=== PATIENT | male | born 1960 | race Caucasian/White ===

== ENCOUNTER 2019-07-23 13:38 | Emergency (ER) | payer MEDICARE ==
--- NOTE | 2019-07-23 14:15 | ED ---
GI/ HPI - HPI Summary HPI Summary: 59 y/o male presented to [facility] complaining of hematuria and suprapubic pain intermittently since removal of a prostate tumor but constant since last night. He notes frequent urination with a dark red appearance. He denies any SOB. Symptoms currently rated 3/10 in [address] He sees Dr. Townsend for prostate cancer , and he received a CT of his bladder last week with concerning findings that led Dr. Townsend to recommend the patient to someone at [facility]. He has an appointment there that has not occurred yet. - History of Current Complaint Chief Complaint: EDGeneral Stated Complaint: BLOOD IN URINE/SOB PER PT Hx Obtained From: Patient Onset/Duration: Atraumatic - since removal of prostate tumor Timing: Constant Current Severity: Mild Pain Intensity: 3 Location of Pain: Suprapubic Associated Signs and Symptoms: Positive: Hematuria, Abdominal Pain, Other: - increased urinary frequency; Negative: SOB - Allergy/Home Medications Allergies/Adverse Reactions: Allergies Allergy/AdvReac Type Severity Reaction Status Date / Time No Known Allergies Allergy Verified 07/13/19 09:29 Home Medications: Home Medications Multivitamins/Minerals TAB* [Theragran/minerals TAB*] 1 tab PO DAILY 07/23/19 [ History Confirmed 07/23/19] PMH/Surg Hx/FS Hx/Imm Hx Endocrine/Hematology History: Denies: Hx Diabetes, Hx Systemic Lupus Erythematosus Cardiovascular History: Denies: Hx Congestive Heart Failure, Hx Hypertension History: Reports: Hx Renal Disease - RENAL PELVIS CA Denies: Hx Dialysis Musculoskeletal History: Denies: Hx Rheumatoid Arthritis - Cancer History Cancer Type, Location and Year: RENAL PELVIS CA (LEFT NEPHRECTOMY), PROSTATE CA Hx Chemotherapy: No - Surgical History Surgical History: Yes Surgery Procedure, Year, and Place: LEFT NEPHRECTOMY Infectious Disease History: No Infectious Disease History: Denies: Traveled Outside the [place] in Last 30 Days - Family History Known Family History: Positive: Other - cancer Negative: Cardiac Disease, Hypertension, Diabetes - Social History Alcohol Use: Daily Hx Substance Use: No Substance Use Type: Reports: None Hx Tobacco Use: Yes Smoking Status (MU): Heavy Every Day Tobacco Smoker Review of Systems Negative: Shortness Of Breath Positive: Abdominal Pain - suprapubic Positive: frequency - increased, hematuria All Other Systems Reviewed And Are Negative: Yes Physical Exam - Summary Physical Exam Summary: Appearance: The patient is well-nourished in no acute distress and in no acute pain. Skin: The skin is warm and dry, and skin color reflects adequate perfusion. HEENT: The head is normocephalic and atraumatic. The pupils are equal and reactive. The conjunctivae are clear and without drainage. Nares are patent and without drainage. Mouth reveals moist mucous membranes, and the throat is without erythema and exudate. The external ears are intact. The ear canals are patent and without drainage. The tympanic membranes are intact. Neck: The neck is supple with full range of motion and non-tender. There are no carotid bruits. There is no neck vein distension. Respiratory: Chest is non-tender. Lungs are clear to auscultation and breath sounds are symmetrical and equal. Cardiovascular: Tachycardia noted. There is no murmur or rub auscultated. There is no peripheral edema and pulses are symmetrical and equal. Abdomen: The abdomen is soft with suprapubic tenderness. There are normal bowel sounds heard in all four quadrants and there is no organomegaly palpated. Musculoskeletal: There is no back tenderness noted. Extremities are non-tender with full range of motion. There is good capillary refill. There is no peripheral edema or calf tenderness elicited. Neurological: Patient is alert and oriented to person, place and time. The patient has symmetrical motor strength in all four extremities. Cranial nerves are grossly intact. Deep tendon reflexes are symmetrical and equal in all four extremities. Psychiatric: The patient has an appropriate affect and does not exhibit any anxiety or depression. Triage Information Reviewed: Yes Vital Signs On Initial Exam: Initial Vitals Temp Pulse Resp BP Pulse Ox 98.0 F 144 24 90/72 100 07/23/19 13:50 07/23/19 13:50 07/23/19 13:50 07/23/19 13:50 07/23/19 13:50 Vital Signs Reviewed: Yes Procedures - Sedation Patient Received Moderate/Deep Sedation with Procedure: No Diagnostics - Vital Signs Vital Signs Temp Pulse Resp BP Pulse Ox 07/23/19 13:50 98.0 F 144 24 90/72 100 - Laboratory Result Diagrams: 07/23/19 14:03 07/23/19 14:03 Lab Statement: Any lab studies that have been ordered have been reviewed, and results considered in the medical decision making process. - Radiology CXR Radiology Interpretation Completed By: Radiologist Summary of Radiographic Findings: IMPRESSION: 1. No acute cardiopulmonary process by radiograph. 2. Known right lower lobe nodule better visualized by comparison imaging. This report was reviewed by the ED physician. - CT Chest CTA CT Interpretation Completed By: Radiologist Summary of CT Findings: IMPRESSION: NO PULMONARY ARTERIAL FILLING DEFECT TO SUGGEST PULMONARY EMBOLISM. STABLE PULMONARY. PARENCHYMAL NODULARITY WITH THE DOMINANT NODULE IN THE RIGHT LOWER LOBE. This report was reviewed by the ED physician. - EKG 1420 Cardiac Rate: Tachycardia - 115 bpm EKG Rhythm: Sinus Tachycardia Summary of EKG Findings: Sinus tachycardia at 115bpm, normal ST, no ectopy, no STEMI. This EKG was reviewed and interpreted by the ED physician. Re-Evaluation - Re-Evaluation First Eval Re-Evaluation Time: 18:00 Comment: We discussed results and plan for discharge. GIGU Course/Dx - Course Course Of Treatment: Mr. Spence presented with gross hematuria lasting at least several days. An hour before presentation he began to feel short of breath especially with exertion. Triage area he was noted to be hypotensive with a systolic blood pressure of 90 and tachycardic with a pulse of 144. He was brought immediately back, placed on a monitor and IV was initiated. Labs are obtained and he was given IV fluids. His labs are generally unremarkable aside from some blood in his urine. His hemoglobin was 9 which is in the general range of his norm. With fluids his blood pressure was in the 1 teens and his heart rate likewise. I spoke with Dr. Squires who reviewed the records and stated that that is his normal vitals. He agreed to follow the patient this week for further evaluation of hematuria. - Diagnoses Provider Diagnoses: Hematuria, Dehydration Discharge ED - Sign-Out/Discharge Documenting (check all that apply): Patient Departure - dc - Discharge Plan Condition: Stable Disposition: HOME Patient Education Materials: Dehydration (ED), Hematuria (ED) Referrals: [facility] [Outside] - 3 Days Additional Instructions: Follow up with Dr. Townsend in 1-3 days. If you experience new or worsening symptoms please return to the ER. - Billing Disposition and Condition Condition: STABLE Disposition: Home - Attestation Statements Document Initiated by Scribe: Yes Documenting Scribe: China Brennan Provider For Whom Scribe is Documenting (Include Credential): Dr. Holger Morris MD Scribe Attestation: IChina scribed for Dr. Holger Morris MD on 07/23/19 at 2025. Scribe Documentation Reviewed: Yes Provider Attestation: The documentation as recorded by the unrulyibe, China Brennan accurately reflects the service I personally performed and the decisions made by me, Dr. Holger Morris MD Status of Scribeligio Document: Viewed
[2019-07-23 14:16] LABS: ABS Lymphocytes 1.5 10^3/ul (1.0-4.8); ABS Monocytes 1.1 10^3/ul (0-0.8); ABS Neutrophils 12.1 10^3/ul (1.5-7.7); Eosinophil % 0.1 %; Hematocrit 29 % (42-52); Hemoglobin 9.1 g/dL (14.0-18.0); Lymphocyte % 10.4 %; Mean Corpuscular HGB Conc 31 g/dL (31-36); Mean Corpuscular Hemoglobin 23 pg (27-31); Mean Corpuscular Volume 73 fL (80-94); Mean Platelet Volume 7.3 fL (7.4-10.4); Platelet Count 506 10^3/uL (150-450); Red Blood Count 3.96 10^6 /uL (4.18-5.48); Red Cell Distribution Width 20 % (10-15); White Blood Count 14.7 10^3/uL (3.5-10.8)
[2019-07-23 14:29] LABS: INR 1.09 (0.82-1.09)
[2019-07-23 14:34] LABS: ALT 29 U/L (7-52); AST 20 U/L (13-39); Albumin/Globulin Ratio 1.4 (1-3); Alkaline Phosphatase 98 U/L (34-104); Anion Gap 11 mmol/L (2-11); BUN/Creatinine Ratio 5.4 (8-20); Blood Urea Nitrogen 7 mg/dL (6-24); C Reactive Protein 46.19 mg/L (<8.01); CO2 Carbon Dioxide 19 mmol/L (22-32); Calcium 9.1 mg/dL (8.6-10.3); Chloride 105 mmol/L (101-111); EGFR African American 69.2 (>60); EGFR Non-African American 57.2 (>60); Globulin 2.8 g/dL (2-4); Glucose 138 mg/dL (70-100); Potassium 3.6 mmol/L (3.5-5.0); Sodium 135 mmol/L (135-145); Total Protein 6.8 g/dL (6.4-8.9)
[2019-07-23] MEDS ORDERED: NS 0.9% 1000 ML** 1,000 ML IV ONE ×2 (15:31→17:38)
[2019-07-23] MEDS ORDERED: Iodixanol* (CONTRAST) 320 MG/ML 100 ML SDV IV ONE (15:34)
[2019-07-23] MEDS ORDERED: HYDROmorphone INJ1* 1 MG/ML SYRINGE IV SLOW PU ONE (16:10)
[2019-07-23] MEDS ORDERED: Ondansetron INJ* 2 MG/ML VIAL IV ONE (16:10)
[2019-07-23 17:34] LABS: Urine Bacteria Absent (Absent)
[2019-07-23 17:40] LABS: Urine Appearance Turbid; Urine Bilirubin Negative (Negative); Urine Blood 2+ (Negative); Urine Glucose Negative (Negative); Urine Ketones Negative (Negative); Urine Nitrite Negative (Negative); Urine Protein 2+(100 mg/dL) (Negative); Urine Specific Gravity 1.047 (1.010-1.030); Urine Urobilinogen Negative (Negative)
[2019-07-23 17:58] LABS: Urine Red Blood Cell 3+(>10/hpf) (Absent); Urine Squamous Epithelial Cell Present (Absent); Urine White Blood Cell 1+(6-10/hpf) (Absent)
[2019-07-23 17:59] LABS: Urine Color Red
[2019-07-23 18:15] VITALS: BP 123/84
== END 2019-07-23 18:14 | disposition home or self-care (01) ==
LOC: ED 13:38
DX: R31.9 Hematuria, unspecified (principal); E86.0 Dehydration; R10.9 Unspecified abdominal pain; Z79.899 Other long term (current) drug therapy; F17.210 Nicotine dependence, cigarettes, uncomplicated
CPT/HCPCS: 36415; 71045; 71275; 80053; 81003; 81015; 83605; 83880; 84484; 85025; 85379; 85610; 86140; 87040; 87086; 93005; 96361; 96374; 96375; 99283; J1170; J2405; Q9967

== ENCOUNTER 2019-09-10 11:44 | Inpatient (IN) | payer MEDICARE ==
[2019-09-10 12:10] LABS: ABS Basophils 0.1 10^3/ul (0-0.2); ABS Eosinophils 0.2 10^3/ul (0-0.6); ABS Lymphocytes 1.3 10^3/ul (1.0-4.8); ABS Monocytes 0.8 10^3/ul (0-0.8); ABS Neutrophils 7.1 10^3/ul (1.5-7.7); Hematocrit 23 % (42-52); Hemoglobin 7.4 g/dL (14.0-18.0); Lymphocyte % 13.5 %; Mean Corpuscular HGB Conc 32 g/dL (31-36); Mean Corpuscular Hemoglobin 22 pg (27-31); Mean Corpuscular Volume 70 fL (80-94); Mean Platelet Volume 8.2 fL (7.4-10.4); Platelet Count 527 10^3/uL (150-450); Red Cell Distribution Width 20 % (10-15); White Blood Count 9.4 10^3/uL (3.5-10.8)
[2019-09-10 12:30] LABS: Albumin 3.4 g/dL (3.2-5.2); BUN/Creatinine Ratio 12.8 (8-20); EGFR African American 62.5 (>60); EGFR Non-African American 51.6 (>60); Globulin 3.4 g/dL (2-4); Total Bilirubin 0.3 mg/dL (0.2-1.0); Total Protein 6.8 g/dL (6.4-8.9)
[2019-09-10] MEDS ORDERED: Pantoprazole IV* 40 MG IV ONE (13:30)
--- NOTE | 2019-09-10 16:37 | CONS ---
CONSULTATION REPORT: DATE OF CONSULT: 09/10/19 REQUESTING PROVIDER: Sandra Degroot NP INDICATION FOR CONSULTATION: GI bleed. NARRATIVE: Mr. Spence is a 59-year-old gentleman who has prostate cancer. He has undergone surgery and now is undergoing chemotherapy. Today, he was in the oncology office and had repeat blood work that showed his hemoglobin had fallen into the 7 range and was directly admitted to the hospital for further workup of his anemia. I saw the patient not too long ago. He denies any gastrointestinal blood loss. He denies any vomiting. No nausea. No abdominal pain. He denies any change in his bowel habits. His stools are brown. He denies any black stools nor bright red blood in the stools. He denies taking any nonsteroidal anti- inflammatories. He was told 3 years ago to avoid all NSAIDs. He states that he had been seeing blood in his urine; however, recently it has been more orange in color. No unintentional weight loss. Appetite is good. He has never had a colonoscopy. He has never had GI bleeding in the past. PAST MEDICAL HISTORY: Significant for prostate cancer and lupus. PAST SURGICAL HISTORY: Includes nephrectomy and prostatectomy. MEDICATIONS AT HOME: Include: 1. Pain medication. 2. Flomax. ALLERGIES: None. FAMILY HISTORY: He denies any GI cancers in the family. SOCIAL HISTORY: He does smoke tobacco. Rarely drinks alcohol. REVIEW OF SYSTEMS: Twelve systems were reviewed and other than that mentioned in the HPI were unremarkable. PHYSICAL EXAM: Temperature is 98.1, blood pressure is 105/63, pulse is 95, respiratory rate of 16, O2 sat is 100%. General: Well-appearing male, in no apparent distress, alert, oriented, pleasant, fluent. HEENT: Mucous membranes are moist without lesions, ulcers, or exudate. Neck is supple. Trachea is midline. Head is normocephalic, atraumatic. Conjunctivae are pale. Heart: Regular rate and rhythm. Lungs: Clear to auscultation. Abdomen is obese. Positive bowel sounds. Soft, nontender, nondistended. No hepatosplenomegaly, masses, rebound, or guarding. Skin is warm and dry. LABORATORY DATA: Of note, white count is 9.4; hemoglobin is 7.4, it was 10.2 back in May of last year; platelet count of 527. Chemistry panel shows BUN normal at 18, creatinine is 1.41. ASSESSMENT AND PLAN: This is a pleasant 59-year-old gentleman admitted for workup of anemia and to receive blood transfusion. There is really no evidence of any gastrointestinal bleeding; however, the patient has never had a colonoscopy. At this point, we should arrange for both an EGD and a colonoscopy to further evaluate for any gastrointestinal blood loss. If unremarkable, other causes such as hemolysis and/or bone marrow suppression need to considered. [id number]/[facility] #: [id number] [facility] HOSPITALKimberli
[2019-09-10] MEDS ORDERED: PEG 3000 GI LAVAGE* 1 GALLON PO ONE (18:00)
[2019-09-10] MEDS: NS 0.9% 1000 ML** 1,000 ML IV SCH (18:04)
[2019-09-10] MEDS: HYDROcodone/ACETAMIN 5-325 MG* 1 TAB PO SCH (19:47)
[2019-09-10 20:58] LABS: ABS Basophils 0.1 10^3/ul (0-0.2); ABS Eosinophils 0.2 10^3/ul (0-0.6); ABS Lymphocytes 1.5 10^3/ul (1.0-4.8); ABS Monocytes 0.8 10^3/ul (0-0.8); ABS Neutrophils 6.6 10^3/ul (1.5-7.7); Eosinophil % 2.4 %; Hematocrit 24 % (42-52); Hemoglobin 7.8 g/dL (14.0-18.0); Lymphocyte % 15.9 %; Mean Corpuscular HGB Conc 32 g/dL (31-36); Mean Corpuscular Hemoglobin 23 pg (27-31); Mean Corpuscular Volume 72 fL (80-94); Mean Platelet Volume 7.6 fL (7.4-10.4); Platelet Count 456 10^3/uL (150-450); Red Blood Count 3.41 10^6 /uL (4.18-5.48); Red Cell Distribution Width 21 % (10-15); White Blood Count 9.2 10^3/uL (3.5-10.8)
[2019-09-11 06:23] LABS: ABS Basophils 0.1 10^3/ul (0-0.2); ABS Eosinophils 0.3 10^3/ul (0-0.6); ABS Lymphocytes 1.1 10^3/ul (1.0-4.8); ABS Monocytes 0.7 10^3/ul (0-0.8); Eosinophil % 3.1 %; Hematocrit 25 % (42-52); Hemoglobin 7.6 g/dL (14.0-18.0); Lymphocyte % 12.2 %; Mean Corpuscular HGB Conc 31 g/dL (31-36); Mean Corpuscular Hemoglobin 22 pg (27-31); Mean Corpuscular Volume 71 fL (80-94); Mean Platelet Volume 8.2 fL (7.4-10.4); Platelet Count 509 10^3/uL (150-450); Red Blood Count 3.45 10^6 /uL (4.18-5.48); Red Cell Distribution Width 20 % (10-15); White Blood Count 9.1 10^3/uL (3.5-10.8)
[2019-09-11 06:45] LABS: ALT 13 U/L (7-52); AST 11 U/L (13-39); Albumin 3.1 g/dL (3.2-5.2); Alkaline Phosphatase 121 U/L (34-104); Anion Gap 10 mmol/L (2-11); BUN/Creatinine Ratio 12.8 (8-20); Blood Urea Nitrogen 16 mg/dL (6-24); CO2 Carbon Dioxide 20 mmol/L (22-32); Calcium 8.7 mg/dL (8.6-10.3); Chloride 108 mmol/L (101-111); EGFR African American 71.8 (>60); EGFR Non-African American 59.3 (>60); Globulin 3.2 g/dL (2-4); Glucose 103 mg/dL (70-100); Potassium 4.1 mmol/L (3.5-5.0); Sodium 138 mmol/L (135-145); Total Protein 6.3 g/dL (6.4-8.9)
[2019-09-11] MEDS: Tamsulosin CAP* 0.4 MG PO SCH (07:44)
[2019-09-11] MEDS: Multivitamins/Minerals TAB PO SCH (07:44)
[2019-09-11] MEDS: HYDROcodone/ACETAMIN 5-325 MG* 1 TAB PO SCH ×2 (07:51→21:29)
[2019-09-11] MEDS: Pantoprazole IV* 40 MG IV SCH (07:52)
[2019-09-11] MEDS ORDERED: PEG 3000 GI LAVAGE* 1 GALLON PO ONE (09:00)
[2019-09-11 09:56] LABS: Total Iron Binding Capacity 298 mcg/dL (250-450); Transferrin 213 mg/dL (203-362)
[2019-09-11 09:57] LABS: % Iron Saturation 7 % (15-55); Iron < 20 ug/dL (50-212)
[2019-09-11 10:16] LABS: Ferritin 116.1 ng/mL (24-336)
[2019-09-11 11:10] LABS: Urine Appearance Turbid; Urine Bilirubin Negative (Negative); Urine Blood 2+ (Negative); Urine Color Yellow; Urine Glucose Negative (Negative); Urine Ketones Negative (Negative); Urine Nitrite Positive (Negative); Urine Protein 2+(100 mg/dL) (Negative); Urine Specific Gravity 1.011 (1.010-1.030); Urine Urobilinogen Negative (Negative)
[2019-09-11 11:14] LABS: Urine Bacteria Absent (Absent); Urine Red Blood Cell 3+(>10/hpf) (Absent); Urine Squamous Epithelial Cell Present (Absent); Urine White Blood Cell 3+(>20/hpf) (Absent)
[2019-09-11] MEDS ORDERED: fentaNYL* 50 MCG/ML 2 ML VIAL (100 MCG VIAL) ONE (15:28)
[2019-09-11] MEDS ORDERED: Midazolam* 1 MG/ML 10 ML VIAL (10 MG) ONE (15:28)
--- NOTE | 2019-09-11 16:13 | PN ---
Progress Note - Progress Note Date of Service: 09/11/19 SOAP: Subjective: []Seen and examined this AM ~ 0900. Today denies any black stools. Tells me he feels a little perkier following unit of PRBCs last night. Cont.'s to deny vi hematuria. Anxious to get home. Declines need for nicotine replacement. Plan as of this AM was colonoscopy ~ 2:30pm Medications: Hydrocodone Bitart/Acetaminophen (Van 5-325 Tab*) 1 tab PO BID [facility] Last Admin: 09/11/19 07:51 Dose: Not Given Sodium Chloride (Ns 0.9% 1000 Ml) 1,000 mls @ 75 mls/hr IV PER RATE [facility] Last Admin: 09/10/19 18:04 Dose: 75 mls/hr Multivitamins/Minerals (Theragran/Minerals Tab*) 1 tab PO DAILY [facility] Last Admin: 09/11/19 07:44 Dose: Not Given Pantoprazole Sodium (Protonix Iv*) 40 mg IV DAILY [facility] Last Admin: 09/11/19 07:52 Dose: 40 mg Tamsulosin HCl (Flomax Cap*) 0.4 mg PO DAILY [facility] Last Admin: 09/11/19 07:44 Dose: Not Given Objective: [] Vital Signs Temp Pulse Resp BP Pulse Ox 97.1 F 79 20 107/63 97 09/11/19 15:15 09/11/19 15:15 09/11/19 15:15 09/11/19 15:15 09/11/19 15:15 A&Ox3, EOMI, neuro grossly non-focal HRR, S1S2 LS clear +BS, abd. soft and non-tender No peripheral edema noted Laboratory Results - last 24 hr 09/10/19 09/10/19 09/10/19 11:50 13:20 20:48 WBC 9.2 RBC 3.41 L Hgb 7.8 L Hct 24 L MCV 72 L MCH 23 L MCHC 32 RDW 21 H Plt Count 456 H D MPV 7.6 Neut % (Auto) 71.8 Lymph % (Auto) 15.9 [place] % (Auto) 8.7 Eos % (Auto) 2.4 Baso % (Auto) 1.2 Absolute Neuts (auto) 6.6 Absolute Lymphs (auto) 1.5 Absolute Monos (auto) 0.8 Absolute Eos (auto) 0.2 Absolute Basos (auto) 0.1 Absolute Nucleated RBC 0.0 Nucleated RBC % 0.0 Sodium Potassium Chloride Carbon Dioxide Anion Gap BUN Creatinine Est GFR ( Amer) Est GFR (Non-Af Amer) BUN/Creatinine Ratio Glucose Calcium Iron TIBC % Saturation Unsat Iron Binding Transferrin Ferritin Total Bilirubin AST ALT Alkaline Phosphatase Total Protein Albumin Globulin Albumin/Globulin Ratio Urine Color Urine Appearance Urine pH Ur Specific Dickerson Urine Protein Urine Ketones Urine Blood Urine Nitrate Urine Bilirubin Urine Urobilinogen Ur Leukocyte Esterase Urine WBC (Auto) Urine RBC (Auto) Ur Squamous Epith Cells Urine Bacteria Urine Glucose Blood Type A Positive Antibody Screen Negative Crossmatch See Detail See Detail 09/11/19 09/11/19 09/11/19 05:43 05:43 11:00 WBC 9.1 RBC 3.45 L Hgb 7.6 L Hct 25 L MCV 71 L MCH 22 L MCHC 31 RDW 20 H Plt Count 509 H D MPV 8.2 Neut % (Auto) 76.6 Lymph % (Auto) 12.2 [place] % (Auto) 7.3 Eos % (Auto) 3.1 Baso % (Auto) 0.8 Absolute Neuts (auto) 7.0 Absolute Lymphs (auto) 1.1 Absolute Monos (auto) 0.7 Absolute Eos (auto) 0.3 Absolute Basos (auto) 0.1 Absolute Nucleated RBC 0.0 Nucleated RBC % 0.0 Sodium 138 Potassium 4.1 Chloride 108 Carbon Dioxide 20 L Anion Gap 10 BUN 16 Creatinine 1.25 H Est GFR ( Amer) 71.8 Est GFR (Non-Af Amer) 59.3 BUN/Creatinine Ratio 12.8 Glucose 103 H Calcium 8.7 Iron < 20 L TIBC 298 % Saturation 7 L Unsat Iron Binding < 283 Transferrin 213 Ferritin 116.1 Total Bilirubin 0.50 AST 11 L ALT 13 Alkaline Phosphatase 121 H Total Protein 6.3 L Albumin 3.1 L Globulin 3.2 Albumin/Globulin Ratio 1.0 Urine Color Yellow Urine Appearance Turbid Urine pH 6.0 Ur Specific Dickerson 1.011 Urine Protein 2+(100 mg/dl) A Urine Ketones Negative Urine Blood 2+ A Urine Nitrate Positive A Urine Bilirubin Negative Urine Urobilinogen Negative Ur Leukocyte Esterase 3+ A Urine WBC (Auto) 3+(>20/hpf) A Urine RBC (Auto) 3+(>10/hpf) A Ur Squamous Epith Cells Present A Urine Bacteria Absent Urine Glucose Negative Blood Type Antibody Screen Crossmatch Assessment/Plan: []59 yo male with known metastatic prostate cancer (found incidently with left nephrectomy, no history of TURP or pelvic Radiation) treated with Docetaxel in 2015, resection of bladder tumor (confirmed prostate cancer) in 2018 followed by repeat course of Docetaxel completed at the end of 2018 presenting to the office on 09/10/19 with acute drop in hmg concerning for GI bleed d/t associated reactive thrombocytemia and complaint of black stools, however he now denies this later complaint and his urine confirms 3+ RBCs. He is slatted for a colonoscopy today and per our records has a strong family history of colon cancer (though he told the consulting GI doctor last night that he did not ) I think this work-up is still very prudent, however I will defer to the GI team. In regards to his persistent anemia he was likely also dehydrated as he did not have a robust response and we will give him one more unit tonight. Assuming any further GI work-up is benign we will plan to d/c him home tomorrow with restaging scans as an outpatient and short course f/u with labs. Dispo: plan home tomorrow pending stable labs and negative GI work-up []
[2019-09-11] MEDS: NS 0.9% 1000 ML** 1,000 ML IV SCH (22:49)
--- NOTE | 2019-09-12 06:03 | PRO ---
DATE: 09/11/19 - ROOM #[id number] REFERRING PHYSICIAN: Dr. Johan Townsend.* PROCEDURE: Upper gastrointestinal endoscopy to distal duodenum; colonoscopy to the cecum and biopsy of mid right colon and distal transverse colon polyps. INDICATION: A 59-year-old man who is admitted with anemia. He initially gave a history of dark stool, but then rescinded that today on speaking to the same hematology/oncology practitioner. He denied to me having any trouble with acid indigestion or peptic problem and denied being on antipeptide treatment. He denied any bowel habit abnormalities in general. There is a strong family history of cancer. He personally has had a left renal cell cancer and metastatic prostate cancer. Treatment for that has been in several different locations - please see the Oncology notes. Preprocedure, the strategy of looking for major lesions could interfere with his current chemo was outlined with his care team and with the patient and family. ENDOSCOPIST: Justin Reddy MD. MEDICATION: Midazolam 10, fentanyl 100. FINDINGS: He is an obese, deconditioned, chronically ill-appearing man, in no overt distress. He was positioned left side down and moderate sedation induced with sequential doses of the medication. EGD: Larynx - symmetric, limited views. Esophagus - easily entered. Mucosa was normal in the upper, mid, and lower esophagus with EG junction of 41 to 42. Motility is active. There is no hiatal hernia. Stomach - generally normal mucosa in the cardia, fundus, body, and antrum. There were no erosions and no bleeding. Duodenum - pylorus is normal. The bulb has some mild splashy erythema over a small amount of Karli's gland appearing fine nodularity to the mucosa. Second through fourth portions of the duodenum are normal apart from couple of pale, smooth lipomas. That histology is based on the appearance, though clearly, the lesions are deep submucosal, appear low risk for bleeding. COLONOSCOPY: Initial views show an excellent prep and normal mucosa. The prep remained excellent. During insertion, a polyp was seen in the transverse colon , though the priority was reaching the cecum. Cecum appeared normal as did the ileocecal valve. In the mid right colon, there was a 13 to 14 mm sessile granular- appearing polyp. It did appear benign. There were no malignant features of plateauing or bleeding or desmoplasia of the underlying wall, which remain pliable with normal motility. Three biopsies were taken. Further withdrawal views reached the larger polyp in the distal transverse colon where there was free motion of the wall and the short stumpy stock. There was no bleeding. Again, there was no clear stigmata of malignancy. Four biopsies were taken. There was no sign of blood loss. Further the withdrawal views show that the rectum showed no other abnormality. IMPRESSION: 1. Duodenal lipomas. 2. Colon polyps - both appear benign. The larger transverse colon lesion could be at risk of causing intussusception like physiology, though that is an unusual circumstance and not to be accepted per se. Neither polyp appears particularly at high risk for bleeding during routine anticoagulation should that be required. Neither appeared to be contributing to his current anemia nor high risk for impacting on his life span. [id number]/[facility] #: [id number] RUTHIE
[2019-09-12 08:42] LABS: ABS Basophils 0.1 10^3/ul (0-0.2); ABS Eosinophils 0.2 10^3/ul (0-0.6); ABS Lymphocytes 1.1 10^3/ul (1.0-4.8); ABS Monocytes 0.7 10^3/ul (0-0.8); ABS Neutrophils 5.3 10^3/ul (1.5-7.7); Eosinophil % 2.2 %; Hematocrit 26 % (42-52); Hemoglobin 8.5 g/dL (14.0-18.0); Lymphocyte % 14.6 %; Mean Corpuscular HGB Conc 32 g/dL (31-36); Mean Corpuscular Hemoglobin 24 pg (27-31); Mean Corpuscular Volume 73 fL (80-94); Mean Platelet Volume 7.9 fL (7.4-10.4); Nucleated Red Blood Cells % 0.1; Platelet Count 538 10^3/uL (150-450); Red Cell Distribution Width 20 % (10-15); White Blood Count 7.3 10^3/uL (3.5-10.8)
[2019-09-12 08:54] LABS: Albumin/Globulin Ratio 0.9 (1-3); BUN/Creatinine Ratio 11.2 (8-20); Calcium 8.5 mg/dL (8.6-10.3); EGFR African American 78.2 (>60); EGFR Non-African American 64.7 (>60); Globulin 3.2 g/dL (2-4); Potassium 4.2 mmol/L (3.5-5.0); Total Bilirubin 0.4 mg/dL (0.2-1.0); Total Protein 6.2 g/dL (6.4-8.9)
[2019-09-12 09:17] VITALS: BP 115/62
--- NOTE | 2019-09-12 11:38 | DS ---
DISCHARGE SUMMARY: DATE OF ADMISSION: 09/10/19 DATE OF DISCHARGE: 09/12/19 ATTENDING PHYSICIAN: Dr. Townsend. DISCHARGING PHYSICIAN: Dr. Henry Singh in Oncology/Hematology. ADMISSION DIAGNOSES: 1. Symptomatic anemia. 2. Possible gastrointestinal blood loss. ADDITIONAL ADMISSION DIAGNOSIS: Includes known metastatic prostate cancer with prior treatment including Taxotere and Lupron. DISCHARGE DIAGNOSES: Include: 1. Microcytic anemia, thrombocytosis, anemia improved at the time of discharge. 2. Known metastatic prostate carcinoma, having received Taxotere and Lupron. 3. No evidence of Gastrointestinal blood loss INTERVENTIONS DURING THE HOSPITALIZATION: Include: 1. Fluid administration, serial CBC. 2. Colonoscopy and upper endoscopy. BRIEF HOSPITAL COURSE: This is a pleasant 59-year-old gentleman, followed by Dr. Townsend with a known history of metastatic prostate carcinoma. By report of records, he has received Taxotere in the past as well as Lupron. He was seen in the office by nurse practitioner, Sandra Degroot, and at that time, was noted to have a microcytic anemia and thrombocytosis. There was concern for gastrointestinal blood loss. The patient was admitted for further interventions and care. He underwent serial monitoring of the CBC, which showed an improvement in the hemoglobin over time up to 8.1. He received fluids intravenously. He was evaluated by Gastroenterology and underwent upper endoscopy and lower endoscopy. This revealed a normal upper endoscopy. There was a finding of a polyp in the transverse colon. This was removed via colonoscopy with pathology currently pending. The patient will be discharged today on 09/12/[address] Townsend. Prior to that, he will have interim staging scans including CT scan and bone scan. DISCHARGE MEDICATIONS: The medications upon discharge will include: 1. [place] 5/325 one tablet p.o. b.i.d. 2. Theragran Multivitamin 1 tablet p.o. daily. 3. Flomax capsule 0.4 mg p.o. daily. 4. Additional discharge medication will include albuterol sulfate 90 mcg inhaled daily. DISCHARGE ACTIVITY: Will be as tolerated. DISCHARGE DIET: Regular as tolerated. FOLLOWUP: Again will be with Dr. Townsend in 2 weeks, imaging studies prior. DISPOSITION: To home. DISCHARGE CONDITION: Good. [id number]/[facility] #: [id number] [facility]
[2019-09-12] MEDS: HYDROcodone/ACETAMIN 5-325 MG* 1 TAB PO SCH (11:55)
[2019-09-12] MEDS: Pantoprazole IV* 40 MG IV SCH (11:56)
[2019-09-12] MEDS: Tamsulosin CAP* 0.4 MG PO SCH (11:56)
[2019-09-12] MEDS: Multivitamins/Minerals TAB PO SCH (11:56)
== END 2019-09-12 11:00 | disposition home or self-care (01) | DRG 812 ==
LOC: CHOA 11:44 → MED 13:07 → OBSVTOIN 09-11 11:00
PROVIDERS: ADMIT Internal Medicine Hematology & Oncology; ATTEND Internal Medicine Hematology & Oncology
PROC: 0DJ08ZZ Inspection of Upper Intestinal Tract, Via Natural or Artificial Opening Endoscopic (ICD-10-PCS; principal; 2019-09-11)
PROC: 0DDE8ZX Extraction of Large Intestine, Via Natural or Artificial Opening Endoscopic, Diagnostic (ICD-10-PCS; 2019-09-11)
PROC: 30233N1 Transfusion of Nonautologous Red Blood Cells into Peripheral Vein, Percutaneous Approach (ICD-10-PCS; 2019-09-11)
DX: D50.9 Iron deficiency anemia, unspecified (principal); C77.9 Secondary and unspecified malignant neoplasm of lymph node, unspecified; K92.1 Melena; C61 Malignant neoplasm of prostate; D47.3 Essential (hemorrhagic) thrombocythemia; K63.5 Polyp of colon; I95.9 Hypotension, unspecified; M32.9 Systemic lupus erythematosus, unspecified; F17.210 Nicotine dependence, cigarettes, uncomplicated; D17.79 Benign lipomatous neoplasm of other sites; E86.0 Dehydration; Z79.899 Other long term (current) drug therapy; Z85.53 Personal history of malignant neoplasm of renal pelvis; Z85.118 Personal history of other malignant neoplasm of bronchus and lung; Z80.0 Family history of malignant neoplasm of digestive organs
CPT/HCPCS: 36415; 80053; 81003; 81015; 82728; 83540; 83550; 85025; 86850; 86900; 86901; 86922; 87077; 87086; 87186; 88305; 93005; 99156; 99157; 99215; 99219; 99232; 99238; A9270-GY; G0378; G0463; J2250; J3010; P9040